=== PATIENT | female | born 1945 | race Caucasian/White ===

== ENCOUNTER 2020-10-22 08:30 | Day surgery (SDC) | payer MEDICARE ==
[2020-10-22] VITALS (12 sets, daily range): BP systolic 110–142; BP diastolic 51–90
[~2020-10-22] VITALS: Ht 157.5 cm; Wt 98.0 kg
[~2020-10-22 08:30] MED LIST: ASCO-134 PO; CARV-50 PO; CETI10TA18 PO; CHOL20004 PO; DIPH25TA62 PO; ERGO500056 PO; FLO0.4C PO; FURO20TA4 PO; GLUC100017 PO; LEVO25TA7 PO; METH10005 PO; POTA10TA52 PO; WARF1TAB83 PO
[2020-10-22] MEDS ORDERED: nitroGLYCERIN 0.4mg SUBLingual tab SL PRN (09:00)
[2020-10-22] MEDS ORDERED: diphenhydrAMINE 25mg capsule PO PRN (09:00)
[2020-10-22] MEDS ORDERED: methylPREDNISolone sod succ 125mg/2ml vial IV ONE (09:00)
[2020-10-22] MEDS ORDERED: LORazepam 0.5 MG tablet PO PRN (09:00)
[2020-10-22] MEDS ORDERED: ZINC PO (09:20)
[2020-10-22] MEDS ORDERED: CALC-212 PO (09:20)
[2020-10-22] MEDS ORDERED: CHOL20004 PO (09:20)
[2020-10-22] MEDS ORDERED: VITA1TAB20 PO (09:20)
[2020-10-22] MEDS ORDERED: PROBIOTIC GUMMIES (09:20)
[2020-10-22] MEDS ORDERED: MULTIVITAMIN WOMENS PO (09:20)
[2020-10-22] MEDS ORDERED: MEGA RED (09:20)
[2020-10-22] MEDS ORDERED: MAGN400C PO (09:20)
[2020-10-22 09:39] LABS: BASOPHILS % (AUTO) 0.5 % (0-1); EOSINOPHILS # (AUTO) 0.1 X10'3 (0-0.9); EOSINOPHILS % (AUTO) 2.9 % (0-6); HEMATOCRIT 36.7 % (35.0-45.0); HEMOGLOBIN 11.8 g/dl (12.0-16.0); LYMPHOCYTES # (AUTO) 1.2 X10'3 (1.1-4.8); LYMPHOCYTES % (AUTO) 29.1 % (21-51); MEAN CORPUSCULAR HEMOGLOBIN 28.3 PG (27.0-31.0); MEAN CORPUSCULAR HGB CONC 32.2 g/dL (33.0-36.5); MEAN PLATELET VOLUME 8.7 FL (7.4-10.4); MONOCYTES # (AUTO) 0.4 X10'3 (0-0.9); MONOCYTES % (AUTO) 8.8 % (2-12); NEUTROPHILS # (AUTO) 2.5 X10'3 (1.8-7.7); NEUTROPHILS % (AUTO) 58.7 % (42-75); PLATELET COUNT 194 X10'3 (140-440); RED BLOOD COUNT 4.17 X10'6 (4.20-5.60); RED CELL DISTRIBUTION WIDTH 17.2 % (11.5-14.5); WHITE BLOOD COUNT 4.3 X10'3 (4.5-11.0)
[2020-10-22 09:50] LABS: PARTIAL THROMBOPLASTIN TIME 31 SECONDS (22-32)
[2020-10-22 10:06] LABS: ALBUMIN 3.6 G/DL (3.4-5.0); ANION GAP 8 (8-16); BLOOD UREA NITROGEN 10 MG/DL (7-18); BUN/CREATININE RATIO 18.5 (6.6-38.0); CALCIUM 8.3 MG/DL (8.5-10.1); CHLORIDE 109 MMOL/L (99-107); CREATININE 0.54 MG/DL (0.40-0.90); GLUCOSE 90 MG/DL (70-104); SODIUM 143 MMOL/L (135-145); TOTAL CARBON DIOXIDE 25.7 MMOL/L (24-32); eGFR > 90 ML/MIN
[2020-10-22] MEDS ORDERED: fentaNYL/PF 50MCG/1 ML 2ML syringe ONE (10:22)
[2020-10-22] MEDS ORDERED: midazolam 1 mg/ML 2ml injection ONE (10:22)
[2020-10-22] MEDS ORDERED: iohexol 350MG/ML 100ml bottle IV ONE (10:22)
[2020-10-22] MEDS ORDERED: iohexol 350 MG/ML 50ML vial IV ONE ×2 (10:22→11:09)
[2020-10-22] MEDS ORDERED: LIDOcaine 1% (10mg/ml)w/preservative injection 20ml MDV ONE (10:22)
[2020-10-22] MEDS ORDERED: K and/or MAG REPLACEMENT MC SCH (10:30)
[2020-10-22] MEDS ORDERED: potassium Cl 20 mEq SR tablet PO PRN (10:30)
[2020-10-22] MEDS: potassium Cl 20 mEq SR tablet PO PRN ×2 (10:37→17:28)
[2020-10-22] MEDS ORDERED: normal saline 1000ml 1,000 ML IV SCH (11:45)
[2020-10-22] MEDS ORDERED: OXAZEpam 15mg capsule PO PRN (11:45)
[2020-10-22] MEDS ORDERED: HYDROcodone/acetaminophen 10/325mg tab PO PRN (11:45)
[2020-10-22] MEDS ORDERED: HYDROcodone/acetaminophen 5mg/325mg tablet PO PRN (11:45)
[2020-10-22] MEDS ORDERED: proCHLORperazine 10 MG/2 ml inj IV PRN (11:45)
[2020-10-22] MEDS ORDERED: ondansetron/PF 4mg/2ml inj IV PRN (11:45)
[2020-10-27] MEDS ORDERED: FLO0.4C PO (11:26)
[2020-10-27] MEDS ORDERED: GLUC-99 PO (11:26)
[2020-10-28] MEDS ORDERED: POTA10TA52 PO (12:41)
== END 2020-10-22 17:55 | disposition home or self-care (01) ==
LOC: SSTAY O 08:30
PROVIDERS: ATTEND Internal Medicine Cardiovascular Disease
DX: R94.39 Abnormal result of other cardiovascular function study (principal); I25.10 Atherosclerotic heart disease of native coronary artery without angina pectoris; I44.7 Left bundle-branch block, unspecified; I10 Essential (primary) hypertension; E03.9 Hypothyroidism, unspecified; E78.5 Hyperlipidemia, unspecified; I48.91 Unspecified atrial fibrillation; J44.9 Chronic obstructive pulmonary disease, unspecified; G47.30 Sleep apnea, unspecified; E66.9 Obesity, unspecified; Z68.39 Body mass index [BMI] 39.0-39.9, adult; M41.9 Scoliosis, unspecified; Z88.5 Allergy status to narcotic agent; Z88.1 Allergy status to other antibiotic agents; Z88.8 Allergy status to other drugs, medicaments and biological substances; Z79.01 Long term (current) use of anticoagulants; Z98.890 Other specified postprocedural states; Z90.49 Acquired absence of other specified parts of digestive tract; Z87.891 Personal history of nicotine dependence; Z79.899 Other long term (current) drug therapy
CPT/HCPCS: 36415; 71046; 80048; 85025; 85610; 85730; 93005; 93458; 93567; 99152; C1760; C1769; J1644; J2001; J2250; J2930; J3010; J7030; Q0163; Q9967; 99153; A4620; A6258

== ENCOUNTER 2023-10-03 10:15 | Day surgery (SDC) | payer MEDICARE ==
[2023-09-27 12:15] LABS: BASOPHILS % (AUTO) 0.9 % (0-1); EOSINOPHILS # (AUTO) 0.1 X10'3 (0-0.9); EOSINOPHILS % (AUTO) 2.3 % (0-6); LYMPHOCYTES # (AUTO) 1.6 X10'3 (1.1-4.8); LYMPHOCYTES % (AUTO) 30.1 % (21-51); MEAN CORPUSCULAR HEMOGLOBIN 26.6 PG (27.0-31.0); MEAN CORPUSCULAR HGB CONC 31.5 g/dL (33.0-36.5); MEAN CORPUSCULAR VOLUME 84.4 FL (78-98); MEAN PLATELET VOLUME 7.6 FL (7.4-10.4); MONOCYTES # (AUTO) 0.7 X10'3 (0-0.9); MONOCYTES % (AUTO) 13.3 % (2-12); NEUTROPHILS # (AUTO) 2.8 X10'3 (1.8-7.7); NEUTROPHILS % (AUTO) 53.4 % (42-75); PRE OP HEMATOCRIT 34.7 % (35.0-45.0); PRE OP PLATELET COUNT 223 X10'3 (140-440); PRE OP WHITE BLOOD COUNT 5.2 10'3 (4.8-10.8); RED BLOOD COUNT 4.11 X10'6 (4.20-5.60); RED CELL DISTRIBUTION WIDTH 17.7 % (11.5-14.5)
[2023-09-27 12:17] LABS: PRE OP HEMOGLOBIN 10.9 g/dL (12.0-16.0)
[2023-09-27 12:33] LABS: ALBUMIN 3.7 G/DL (3.4-5.0); ALBUMIN/GLOBULIN RATIO 0.9 (1.1-1.5); ALKALINE PHOSPHATASE 114 IU/L (46-116); BLOOD UREA NITROGEN 19 MG/DL (7-18); BUN/CREATININE RATIO 31.1 (10.0-20.0); CALCIUM 8.6 MG/DL (8.5-10.1); CHLORIDE 105 MMOL/L (99-107); CREATININE 0.61 MG/DL (0.40-0.90); PRE OP ALT 41 U/L (30-65); PRE OP ANION GAP 10 (8-16); PRE OP AST 41 U/L (10-37); PRE OP BILIRUB, TOTAL 0.6 MG/DL (0.0-1.0); PRE OP GLUCOSE 98 MG/DL (70-104); PRE OP POTASSIUM 3.9 MMOL/L (3.4-5.1); PRE OP SODIUM 139 MMOL/L (135-145); TOTAL CARBON DIOXIDE 23.8 MMOL/L (24-32); TOTAL PROTEIN 7.8 G/DL (6.4-8.2); eGFR > 90 ML/MIN
[2023-10-03] VITALS (10 sets, daily range): BP systolic 112–151; BP diastolic 59–88; PULSE 46–59; RESP 13–16; TEMP 98.4; O2SAT 92–97
[~2023-10-03] VITALS: Ht 154.9 cm; Wt 84.6 kg
[2023-10-03] MEDS: cefazolin 2gm/D5W 100mL 100 ML IV ONE (05:30)
[2023-10-03] MEDS: DOCUMENT DATE & TIME OF BETA-BLOCKER PO ONE (08:00)
[~2023-10-03 10:15] MED LIST changes: -ASCO-134 PO; +BUPIVAcaine/PF 2.5mg/ml (0.25%) 10ml vial ONE; -CETI10TA18 PO; -CHOL20004 PO; -DIPH25TA62 PO; -ERGO500056 PO; +FLEC50TA3 PO; -FLO0.4C PO; -GLUC100017 PO; +LIDOcaine 1% (10mg/ml)w/preservative inj. 20ml MDV ONE; -METH10005 PO; +POTA-206 PO; -POTA10TA52 PO
[2023-10-03] MEDS ORDERED: labetalol 20mg/4ml (5mg/ml) syringe IV PRN (10:45)
[2023-10-03] MEDS ORDERED: fentaNYL/PF 50MCG/1 ML 2ML syringe IV PRN ×2 (10:45)
[2023-10-03] MEDS ORDERED: ringers solution, lacted 1,000 ML IV SCH (10:45)
[2023-10-03] MEDS: famotidine 20mg tablet PO ONE (10:52)
[2023-10-03] MEDS: ringers solution, lacted 1,000 ML IV SCH (10:52)
[2023-10-03] MEDS ORDERED: propofol 10mg/ml 20ml vial IV ONE (11:15)
[2023-10-03] MEDS: LIDOcaine 1% 30ml preserv. free vial IJ ONE (11:33)
[2023-10-03] MEDS: ondansetron/PF 4mg/2ml inj IV PRN (11:54)
== END 2023-10-03 13:10 | disposition home or self-care (01) ==
LOC: PAS 10:15
PROVIDERS: ATTEND Orthopaedic Surgery Hand Surgery
DX: G56.02 Carpal tunnel syndrome, left upper limb (principal); M65.332 Trigger finger, left middle finger; E66.9 Obesity, unspecified; I48.91 Unspecified atrial fibrillation; M81.0 Age-related osteoporosis without current pathological fracture; Z79.01 Long term (current) use of anticoagulants; Z79.890 Hormone replacement therapy; Z79.891 Long term (current) use of opiate analgesic; Z79.899 Other long term (current) drug therapy; Z98.84 Bariatric surgery status; Z98.890 Other specified postprocedural states; Z68.35 Body mass index [BMI] 35.0-35.9, adult; Z88.5 Allergy status to narcotic agent; Z88.8 Allergy status to other drugs, medicaments and biological substances
CPT/HCPCS: 26055; 36415; 64721; 80053; 82948; 85025; A4215; A6449; J0690; J2405; J2704; J3490; J7030; J7120; Z7506; Z7512; Z7610; S0020

== ENCOUNTER 2024-04-20 06:34 | Day surgery (SDC) | payer MEDICARE ==
[~2024-04-20] VITALS: Ht 154.9 cm; Wt 80.7 kg
[2024-04-20] VITALS (9 sets, daily range): BP systolic 108–141; BP diastolic 57–72; PULSE 57–70; RESP 16; TEMP 97.5; O2SAT 91–96
[~2024-04-20 06:34] MED LIST changes: -BUPIVAcaine/PF 2.5mg/ml (0.25%) 10ml vial ONE; -LIDOcaine 1% (10mg/ml)w/preservative inj. 20ml MDV ONE
[2024-04-20] MEDS ORDERED: ONDA-103 PO (07:34)
[2024-04-20] MEDS ORDERED: ALBU18HF2 INH (07:34)
[2024-04-20] MEDS ORDERED: MULT-1085 PO (07:34)
[2024-04-20 07:48] LABS: INR 1.2 INR; PROTHROMBIN TIME 12.7 SECONDS (9.0-12.0)
[2024-04-20] MEDS: sodium bicarbonate 1meq/ml syr 150 ML in dextrose 5%-water 1,000 ML IV ONE (07:54)
[2024-04-20 07:55] LABS: BASOPHILS % (AUTO) 0.8 % (0-1); EOSINOPHILS # (AUTO) 0.1 X10'3 (0-0.9); EOSINOPHILS % (AUTO) 2.7 % (0-6); HEMATOCRIT 32.8 % (35.0-45.0); HEMOGLOBIN 10.5 g/dl (12.0-16.0); LYMPHOCYTES # (AUTO) 1.1 X10'3 (1.1-4.8); MEAN CORPUSCULAR VOLUME 81.4 FL (78-98); MEAN PLATELET VOLUME 8.2 FL (7.4-10.4); MONOCYTES # (AUTO) 0.4 X10'3 (0-0.9); MONOCYTES % (AUTO) 10.4 % (2-12); NEUTROPHILS # (AUTO) 2.4 X10'3 (1.8-7.7); NEUTROPHILS % (AUTO) 59.1 % (42-75); PLATELET COUNT 232 X10'3 (140-440); RED BLOOD COUNT 4.03 X10'6 (4.20-5.60); RED CELL DISTRIBUTION WIDTH 19.5 % (11.5-14.5); WHITE BLOOD COUNT 4.1 X10'3 (4.5-11.0)
[2024-04-20] MEDS: normal saline 1,000 ML IV SCH (07:55)
[2024-04-20] MEDS: diphenhydrAMINE 25mg capsule PO PRN (07:56)
[2024-04-20 08:15] LABS: ALBUMIN 3.9 G/DL (3.4-5.0); ANION GAP 11 (8-16); BLOOD UREA NITROGEN 14 MG/DL (7-18); CALCIUM 8.7 MG/DL (8.5-10.1); CHLORIDE 107 MMOL/L (99-107); CREATININE 0.61 MG/DL (0.40-0.90); GLUCOSE 92 MG/DL (70-104); MAGNESIUM 2.3 MG/DL (1.5-2.4); POTASSIUM 3.8 MMOL/L (3.5-5.1); SODIUM 141 MMOL/L (135-145); TOTAL CARBON DIOXIDE 23.2 MMOL/L (24-32); eCRCL 59 ML/MIN; eGFR > 90 ML/MIN
[2024-04-20] MEDS ORDERED: LIDOcaine 1% (10mg/ml) 2ml vial ONE ×2 (08:29→09:54)
[2024-04-20] MEDS ORDERED: fentaNYL/PF 50MCG/1 ML 2ML syringe ONE (08:29)
[2024-04-20] MEDS ORDERED: midazolam 1 mg/ML 2ml injection ONE (08:29)
[2024-04-20] MEDS ORDERED: iohexol 350 MG/ML 50ML vial IV ONE ×2 (08:29→10:09)
[2024-04-20] MEDS ORDERED: verapamil 2.5 mg/ml inj IV ONE (08:29)
[2024-04-20] MEDS ORDERED: iohexol 350MG/ML 100ml bottle IV ONE (08:30)
[2024-04-20] MEDS ORDERED: heparin 1,000unit/ml 10ml vial 10 ML ONE (08:30)
[2024-04-20] MEDS ORDERED: nitroGLYCERIN 500mcg/5mL D5W 5 ML IV ONE (08:42)
[2024-04-20] MEDS ORDERED: HYDROmorphone 1 mg/ml syringe ONE (10:01)
[2024-04-20] MEDS ORDERED: HYDROcodone/acetaminophen 5mg/325mg tablet PO PRN (10:50)
[2024-04-20] MEDS ORDERED: normal saline 1000ml 1,000 ML IV SCH (10:50)
[2024-04-20] MEDS ORDERED: proCHLORperazine 10 MG/2 ml inj IV PRN (10:50)
[2024-04-20] MEDS ORDERED: HYDROcodone/acetaminophen 10/325mg tab PO PRN (10:50)
[2024-04-20] MEDS ORDERED: ondansetron/PF 4mg/2ml inj IV PRN (10:50)
[2024-04-20] MEDS: mag hydrox/Alum hydrox/simeth 30ml oral suspension PO ONE (11:06)
== END 2024-04-20 13:15 | disposition home or self-care (01) ==
LOC: SSTAY O 06:34
PROVIDERS: ATTEND Internal Medicine Cardiovascular Disease
DX: R94.39 Abnormal result of other cardiovascular function study (principal); R07.9 Chest pain, unspecified; I44.7 Left bundle-branch block, unspecified; I48.0 Paroxysmal atrial fibrillation; I35.0 Nonrheumatic aortic (valve) stenosis; J44.9 Chronic obstructive pulmonary disease, unspecified; E03.9 Hypothyroidism, unspecified; C94.6 Myelodysplastic disease, not elsewhere classified; I48.91 Unspecified atrial fibrillation; Z87.440 Personal history of urinary (tract) infections; Z88.6 Allergy status to analgesic agent; Z88.8 Allergy status to other drugs, medicaments and biological substances; Z85.038 Personal history of other malignant neoplasm of large intestine
CPT/HCPCS: 80048; 83735; 85025; 85610; 93005; 93458; 99152; 99153; A4615; A4620; A6258; A6402; C1894; J1171; J1644; J2003; J2250; J3010; J3490; J7030; J7070; Q0163; Q9967; Z7610